=== PATIENT | male | born 1945 | race Caucasian/White ===

== ENCOUNTER → 2024-10-15 15:27 | Outpatient (REF) | payer MEDICARE, SELFPAY | LOC: CLAB 15:27 | PROVIDERS: ATTENDING PHYSICIAN Specialist | DX: C67.9 Malignant neoplasm of bladder, unspecified (principal) | CPT/HCPCS: 88305; 88112 ==

== ENCOUNTER → 2024-10-16 08:04 | Outpatient (REF) | payer MEDICARE, SELFPAY ==
[2024-10-16 10:23] LABS: Blood Urea Nitrogen 16 mg/dl (9-20); Calcium 9.3 mg/dl (8.4-10.2); Carbon Dioxide 29 mmol/L (22-30); Chloride 104 mmol/L (98-107); Glucose 108 mg/dl (70-99); Potassium 4.8 mmol/L (3.5-5.1); Sodium 139 mmol/L (135-145); eGFR > 60.00
== END ==
LOC: REG 08:04
PROVIDERS: ATTENDING PHYSICIAN Specialist; FAMILY PHYSICIAN Family Medicine
DX: Z01.818 Encounter for other preprocedural examination (principal); C67.9 Malignant neoplasm of bladder, unspecified
CPT/HCPCS: 36415; 80048

== ENCOUNTER → 2024-10-18 15:03 | Outpatient (REF) | payer MEDICARE, SELFPAY | LOC: RAD 15:03 | PROVIDERS: ATTENDING PHYSICIAN Family Medicine | DX: S49.92XA Unspecified injury of left shoulder and upper arm, initial encounter (principal) | CPT/HCPCS: 73030; 73060 ==

== ENCOUNTER → 2024-10-23 06:36 | Outpatient (REF) | payer MEDICARE, SELFPAY | LOC: RAD 06:36 | PROVIDERS: ATTENDING PHYSICIAN Specialist; FAMILY PHYSICIAN Family Medicine | DX: C67.0 Malignant neoplasm of trigone of bladder (principal) | CPT/HCPCS: 74178; Q9967 ==